=== PATIENT | female | born 1935 | race Caucasian/White ===

== ENCOUNTER → 2016-06-03 | Outpatient (CLI) | payer OTHER, MEDICARE | LOC: FIMAGING 11:18 | PROVIDERS: ATTEND Internal Medicine | DX: I65.23 Occlusion and stenosis of bilateral carotid arteries (principal) ==

== ENCOUNTER 2016-10-03 09:29 | Emergency (ER) | payer OTHER, MEDICARE ==
--- NOTE | 2016-10-03 09:50 | CPEKG ---
Heart Rate: 82 RR Interval: 732 P-R Interval: 168 QRSD Interval: 80 QT Interval: 376 QTC Interval: 439 P Pentwater: 39 QRS Pentwater: -6 T Wave Pentwater: 50 EKG Severity - OTHERWISE NORMAL ECG - EKG Impression: SINUS RHYTHM EKG Impression: ATRIAL PREMATURE COMPLEX Electronically Signed By: Eric Ballard 03-Oct-2016 14:01:43
[2016-10-03 10:47] LABS: % IMMATURE GRANULYOCYTES 0.4 % (0.0-1.1); ABSOLUTE IMMATURE GRANULOCYTES 0.02 10^3/uL (0.00-0.10); ADD DIFF? NO; ADD MORPH? NO; ADD SCAN? NO; ATYPICAL LYMPHOCYTE FLAG 0 (0-99); FRAGMENT RBC FLAG 10 (0-99); HEMATOCRIT 46.2 % (38.0-47.0); HEMOGLOBIN 15.4 g/dL (12.6-16.3); LEFT SHIFT FLG 0 (0-99); LIPEMIA HEMOLYSIS FLAG 80 (0-99); MEAN CELL HEMOGLOBIN 29.5 pg (27.9-34.1); MEAN CELL HEMOGLOBIN CONCENTR. 33.3 g/dL (32.4-36.7); MEAN CELL VOLUME 88.5 fL (81.5-99.8); MEAN PLATELET VOLUME 12.2 fL (8.7-11.7); PLATELET CLUMPS FLAG 20 (0-99); PLATELET COUNT 183 10^3/uL (150-400); RED BLOOD CELL COUNT 5.22 10^6/uL (4.18-5.33); RED CELL DISTRIBUTION WIDTH 13.1 % (11.5-15.2)
[2016-10-03 10:51] LABS: ANION GAP 10 mEq/L (8-16); CALCIUM 9.6 mg/dL (8.5-10.4); CARBON DIOXIDE 22 mEq/l (22-31); CHLORIDE 109 mEq/L (97-110); CREATININE 0.8 mg/dL (0.6-1.0); GLOMERULAR FILTRATION RATE > 60; GLUCOSE 88 mg/dL (70-100); POTASSIUM 4.2 mEq/L (3.5-5.2); SODIUM 141 mEq/L (134-144)
--- NOTE | 2016-10-03 10:52 | EDPHY ---
H & P Stated Complaint: Irregular heart beat. Denies CP Time Seen by Provider: 10/03/16 10:41 - Personal History Current Tetanus/Diphtheria Vaccine: Yes Current Tetanus Diphtheria and Acellular Pertussis (TDAP): Yes - Medical/Surgical History Hx Asthma: No Hx Chronic Respiratory Disease: No Hx Diabetes: No Hx Cardiac Disease: No Hx Renal Disease: No Hx Cirrhosis: No Hx Alcoholism: No Hx HIV/AIDS: No Hx Splenectomy or Spleen Trauma: No Other PMH: mitral valve prolapse - Social History Smoking Status: Former smoker Constitutional: Initial Vital Signs Temperature (C) 36.3 C 10/03/16 09:33 Heart Rate 85 10/03/16 09:33 Respiratory Rate 15 10/03/16 09:33 Blood Pressure 145/79 H 10/03/16 09:33 O2 Sat (%) 98 10/03/16 09:33 O2 Delivery Mode Room Air Allergies/Adverse Reactions: codeine [Codeine] Allergy (Severe, Verified 05/27/14 20:52) HEART RACES oxycodone HCl [From Percocet] Allergy (Severe, Verified 05/27/14 20:52) oxycodone terephthalate [From Percodan] Allergy (Severe, Verified 05/27/14 20:52 ) HEART RACES propoxyphene HCl [From Darvon] Allergy (Severe, Verified 05/27/14 20:52) HEART RACES ANTIHISTAMINES Allergy (Uncoded 05/27/14 20:52) HEART RACES Home Medications: Medication Instructions Recorded Estradiol [Estradiol 1 MG (*)] 0.5 mg PO DAILY 05/27/14 Herbals/Supplements -Info Only 1 ea PO DAILY 05/27/14 Multivitamins [Multivitamin (*)] 1 each PO DAILY 05/27/14 Aspirin 81 mg PO DAILY #30 tablet 05/29/14 Atenolol [Tenormin 25 mg (*)] 25 mg PO DAILY PRN #10 tab 10/03/16 Medical Decision Making ED Course/Re-evaluation: CHIEF COMPLAINT: Racing heart HISTORY OF PRESENT ILLNESS: The patient is a 81 y/o female complaining of palpitations onset last night while lying in bed reading. She felt uncomfortable initially then noticed sensation of an irregular racing heart rate. She attempted to do deep breathing exercises and coughing to "reset" her heart without improvement. The sensation continued for several hours, though she was eventually able to sleep around 02:00 this morning. When she woke, she continued to feel a rapid heart rate, though less intense than during the night. She has previously experienced these symptoms, but they normally resolve after a short time. No chest pain, shortness of breath, near syncope, or fever. She does note she felt indigestion prior to symptom onset last night. Her PCP referred her to the ED for evaluation. REVIEW OF SYSTEMS: A 10 point review of systems was performed and is negative with the exception of the elements mentioned in the history of present illness. PHYSICAL EXAM: HR, BP, O2 Sat, RR. Temp noted General Appearance: Alert, well hydrated, appropriate, and non-toxic appearing. Head: Atraumatic without scalp tenderness or obvious injury Eyes: Pupils equal, round, reactive to light and accommodation, EOMI, no trauma , no injection. Nose: Atraumatic, no rhinorrhea, clear. Throat: Mucus membranes moist. Neck: Supple, non-tender, no lymphadenopathy. Respiratory: No retractions, no distress, no wheezes, and no accessory muscle use. Lungs are clear to auscultation bilaterally. Cardiovascular: Regular rate and rhythm, no murmurs, rubs, or gallops. Good capillary refill all extremities. Gastrointestinal: Abdomen is soft, mild epigastric tenderness, non-distended, no masses, no rebound, no guarding, no peritoneal signs. Musculoskeletal: Normal active ROM of all extremities, atraumatic. Neurological: Alert, appropriate, and interactive. Nonfocal neuro exam. Skin: No rashes, good turgor, no nodules on palpation. PAST MEDICAL HISTORY: mitral valve prolapse, prior occasional arrhythmias PAST SURGICAL HISTORY: denies SOCIAL HISTORY: PCP: Dr. Little DIAGNOSTICS/PROCEDURES/CRITICAL CARE TIME: The 12 lead EKG was interpreted by myself. Sinus mechanism rate 82 with PAC. See hard copy and/or "tracemaster" electronic copy for interpretation. DIFFERENTIAL DIAGNOSIS: The differential diagnosis for the patient's palpitations included but was not limited to various causes of sinus tachycardia such as dehydration and medicines, SVT, atrial flutter, atrial fibrillation, pulmonary causes, acid reflux. MEDICAL DECISION MAKING: This is a 81 y/o female with a history of mitral valve prolapse and occasional prior arrhythmias who presents complaining of palpitations and a racing heart. Her symptoms have since improved, but are still present. Her exam is unremarkable. Plan for EKG, IV, and labs. EKG and labs unremarkable. Consulted with Dr. Kumar, cardiology. He will follow up her next week in his office. She will be given lose-dose atenolol to use as needed for recurrent palpitations in the meantime. Strict return precautions given. She is comfortable with this plan. - Data Points Laboratory Results: Laboratory Results 10/03/16 09:50 10/03/16 09:50 10/03/16 10/03/16 09:50 09:50 WBC 5.50 10^3/uL 10^3/uL (3.80-9.50) RBC 5.22 10^6/uL 10^6/uL (4.18-5.33) Hgb 15.4 g/dL g/dL (12.6-16.3) Hct 46.2 % % (38.0-47.0) MCV 88.5 fL fL (81.5-99.8) MCH 29.5 pg pg (27.9-34.1) MCHC 33.3 g/dL g/dL (32.4-36.7) RDW 13.1 % % (11.5-15.2) Plt Count 183 10^3/uL 10^3/uL (150-400) MPV 12.2 fL H fL (8.7-11.7) Neut % (Auto) 57.3 % % (39.3-74.2) Lymph % (Auto) 30.5 % % (15.0-45.0) Angelina % (Auto) 8.9 % % (4.5-13.0) Eos % (Auto) 1.6 % % (0.6-7.6) Baso % (Auto) 1.3 % % (0.3-1.7) Nucleat RBC Rel Count 0.0 % % (0.0-0.2) Absolute Neuts (auto) 3.15 10^3/uL 10^3/uL (1.70-6.50) Absolute Lymphs (auto) 1.68 10^3/uL 10^3/uL (1.00-3.00) Absolute Monos (auto) 0.49 10^3/uL 10^3/uL (0.30-0.80) Absolute Eos (auto) 0.09 10^3/uL 10^3/uL (0.03-0.40) Absolute Basos (auto) 0.07 10^3/uL 10^3/uL (0.02-0.10) Absolute Nucleated RBC 0.00 10^3/uL 10^3/uL (0-0.01) Immature Gran % 0.4 % % (0.0-1.1) Immature Gran # 0.02 10^3/uL 10^3/uL (0.00-0.10) Sodium 141 mEq/L mEq/L (134-144) Potassium 4.2 mEq/L mEq/L (3.5-5.2) Chloride 109 mEq/L mEq/L (97-110) Carbon Dioxide 22 mEq/l mEq/l (22-31) Anion Gap 10 mEq/L mEq/L (8-16) BUN 15 mg/dL mg/dL (7-23) Creatinine 0.8 mg/dL mg/dL (0.6-1.0) Estimated GFR > 60 Glucose 88 mg/dL mg/dL (70-100) Calcium 9.6 mg/dL mg/dL (8.5-10.4) Magnesium 2.0 mg/dL mg/dL (1.6-2.3) Troponin I < 0.012 ng/mL ng/mL (0-0.034) Departure - Departure Disposition: Home, Routine, Self-Care Clinical Impression: Palpitations Condition: Good Instructions: Atenolol (By mouth), Palpitations (ED) Additional Instructions: Take atenolol as prescribed for recurrent palpitations. Follow up with Dr. Kumar , surgical technician, early next week without fail. Return to the ED for chest pain, shortness of breath, or other worsening of condition. Referrals: Gabriella Little MD [Primary Care Provider] - As per Instructions Shen Kumar MD [Medical Doctor] - As per Instructions Prescriptions: Atenolol [Tenormin 25 mg (*)] 25 mg PO DAILY PRN #10 tab PRN Reason: Heart Rate Greater Than 110 Report Scribed for: Eric Ballard Report Scribed by: Jackie Ortiz Date of Report: 10/03/16 Time of Report: 12:03
[2016-10-03 11:03] LABS: TROPONIN I < 0.012 ng/mL (0-0.034)
[2016-10-03 12:22] VITALS: BP 106/61; PULSE 61; RESP 16; TEMP 97.5; O2SAT 94
== END 2016-10-03 12:22 | disposition home or self-care (01) ==
DX: R00.2 Palpitations (principal); Z79.82 Long term (current) use of aspirin; Z87.891 Personal history of nicotine dependence

== ENCOUNTER → 2016-11-04 | Outpatient (CLI) | payer OTHER, MEDICARE | LOC: FIMAGING 11:14 | PROVIDERS: ATTEND Podiatrist | DX: R60.0 Localized edema (principal) ==

== ENCOUNTER → 2017-02-12 | Outpatient (CLI) | payer OTHER, MEDICARE | LOC: FIMAGING 11:12 | PROVIDERS: ATTEND Internal Medicine | DX: Z12.31 Encounter for screening mammogram for malignant neoplasm of breast (principal); Z80.3 Family history of malignant neoplasm of breast; R09.89 Other specified symptoms and signs involving the circulatory and respiratory systems | CPT/HCPCS: G0202 ==

== ENCOUNTER → 2018-06-02 | Outpatient (CLI) | payer OTHER, MEDICARE | LOC: FIMAGING 09:14 | PROVIDERS: ATTEND Internal Medicine | DX: R10.11 Right upper quadrant pain (principal); K80.20 Calculus of gallbladder without cholecystitis without obstruction; N28.1 Cyst of kidney, acquired; K76.89 Other specified diseases of liver ==

== ENCOUNTER → 2018-06-14 | Outpatient (CLI) | payer OTHER, MEDICARE | LOC: FIMAGING 14:20 | PROVIDERS: ATTEND Internal Medicine | DX: Z12.31 Encounter for screening mammogram for malignant neoplasm of breast (principal); Z80.3 Family history of malignant neoplasm of breast ==

== ENCOUNTER 2018-06-22 18:26 | Emergency (ER) | payer OTHER, MEDICARE ==
[2018-06-22] MEDS ORDERED: FLUORESCEIN SODIUM 1 MG STRIP OP ONE (19:13)
--- NOTE | 2018-06-22 19:26 | EDPHY ---
H & P Time Seen by Provider: 06/22/18 18:54 HPI/ROS: HPI Visual changes. 82-year-old female by Qamar. The patient does have a history of cataract surgery as well as what sounds like vitreous detachment as well as retinal detachment. She reports that she was sitting at her computer screen. She reports that initially her vision was normal. She reports that she then note is wavy lines. She reports that this seemed to be bilateral in nature. She reports that this distorted vision persisted for some time and then became more "jagged "in nature. She was having a hard time seeing. She reports that she finally was able to see her phone well enough to get a ride to the hospital. She reports that on arrival to the emergency department her vision has returned to normal. Dr. Rangel has performed cataract surgery on about a year ago. She also has seen a retinal specialist in the past at [facility]. ROS: Constitutional: No fever, no chills. No weakness. Eyes: No discharge. As above. Musculoskeletal: No back pain. No neck pain. No myalgias or arthralgias. Skin: No rashes. Neurological: No headache. No focal weakness or altered sensation. Past medical history: Mitral valve prolapse. As above. Social history: Lives alone currently has a son who lives down in [place]. Has friends nearby. Nonsmoker. No alcohol. Physical Exam: General Appearance: Alert, no distress. This patient is responding to questions appropriately and in full sentences. This patient appears well- hydrated and well-nourished. Eyes: Pupils equal and round and reactive to light bilaterally at 3-2 mm, no pallor or injection. No lid edema, erythema or injection. Visual acuities: OS 20/30, right eye 20/30, bilateral 20/30. OS/OD - Armijo lamp exam with fluorescein staining; no Allyn's sign, evidence of abrasion, ulceration or other abnormality. Slit-lamp exam; no hypopyon, no hyphema, anterior chamber is deep and clear, no cell/flare. The upper and lower lids were everted with no gross evidence of foreign body. Neurological: Motor sensory function is grossly intact. Cranial nerves are normal. Gait is normal. Skin: Warm and dry, no rashes. Extremities are symmetrical. All joints range without pain or impingement. Psychiatric: No agitation. No depression. Database: EKG: Imaging: Procedures: Emergency department course: Triage vital signs reviewed. She is moderately hypertensive. Vital signs are otherwise normal. Visual acuities obtained. After ocular exam, ophthalmology paged for consultation. 8:30 p.m., spoke with on-call hose operator Dr. Garcia. Case discussed in detail with him. He feels the patient is safe for discharge to home and then follow up in his office tomorrow. He will be in clinic all day and will have no problem seen the patient at that time. 8:35 p.m., the patient was re-evaluated, resting comfortably at this time. She reports continued complete resolution of symptoms. I discussed my call with Ophthalmology and plan for follow-up tomorrow in the office. She is in agreement with this. She does feel comfortable going home at this time. She understands the importance of her follow-up. Return to emergency department precautions were reviewed with her. All of her questions were answered. She was discharged from the emergency department in good condition. Differential Diagnosis: The differential diagnosis on this patient includes but is not limited to vitreous detachment, vitreal hemorrhage, retinal detachment. This represents a partial list of diagnoses considered. These considerations are based on history , physical exam, past history, reassessment and diagnostic testing. Smoking Status: Former smoker Constitutional: Initial Vital Signs Temperature (C) 36.3 C 06/22/18 18:31 Heart Rate 84 06/22/18 18:31 Respiratory Rate 17 06/22/18 18:31 Blood Pressure 146/99 H 06/22/18 18:31 O2 Sat (%) 97 06/22/18 18:31 O2 Delivery Mode Room Air Allergies/Adverse Reactions: codeine [Codeine] Allergy (Severe, Verified 06/22/18 18:30) HEART RACES oxycodone HCl [From Percocet] Allergy (Severe, Verified 06/22/18 18:30) oxycodone terephthalate [From Percodan] Allergy (Severe, Verified 06/22/18 18:30 ) HEART RACES propoxyphene HCl [From Darvon] Allergy (Severe, Verified 06/22/18 18:30) HEART RACES ANTIHISTAMINES Allergy (Uncoded 05/27/14 20:52) HEART RACES Home Medications: Medication Instructions Recorded Estradiol [Estradiol 1 MG (*)] 0.5 mg PO DAILY 05/27/14 Herbals/Supplements -Info Only 1 ea PO DAILY 05/27/14 Multivitamins [Multivitamin (*)] 1 each PO DAILY 05/27/14 Aspirin 81 mg PO DAILY #30 tablet 05/29/14 Departure - Departure Disposition: Home, Routine, Self-Care Clinical Impression: Transient visual disturbance Condition: Good Instructions: Blurred Vision (ED) Additional Instructions: Read and follow provided instructions. Follow-up with Dr. Wes Garcia of the ophthalmology service, as discussed tomorrow. Call his office at 9:00 a.m. Tomorrow morning. They will then give you a time to come to the office and be seen. It is very important you do this. Return to the emergency department for return of symptoms/visual changes or other serious concerns. Referrals: Wes Garcia MD [Medical Doctor] - As per Instructions
[2018-06-22 20:42] VITALS: BP 151/80
== END 2018-06-22 20:48 | disposition home or self-care (01) ==
DX: H53.129 Transient visual loss, unspecified eye (principal)